=== PATIENT | female | born 1935 | race African-American/Black ===

== ENCOUNTER 2018-02-15 19:05 | Inpatient (IN) | payer MEDICARE, OTHER ==
[~2018-02-15] VITALS: Ht 154.9 cm; Wt 94.2 kg
[~2018-02-15 19:05] MED LIST: ADV250 IH; BRIM15DR8 OU; DOCU250C91 PO; ESCI5TAB PO; INSLAN SQ; LEVO25TA4 PO; LISI-622 PO; MEMA5 PO; NYSTPW TP; OMEP20CA10 PO; RISP0.252 PO; SIMV-260 PO; WARF2 PO
[2018-02-15] MEDS ORDERED: BISA10SU61 PR (20:12)
[2018-02-15] MEDS ORDERED: ACET-784 PO (20:12)
[2018-02-15] MEDS ORDERED: METF850T2 PO (20:12)
[2018-02-15] MEDS ORDERED: LORA0.5T83 PO (20:12)
[2018-02-15] MEDS ORDERED: LATA7.5D OU (20:12)
[2018-02-15] MEDS ORDERED: FOSF3PAC PO (20:12)
[2018-02-15] MEDS ORDERED: FURO20TA4 PO (20:12)
[2018-02-15] MEDS ORDERED: ACET1TAB12 PO (20:12)
[2018-02-15] MEDS ORDERED: ATOR10TA69 PO (20:12)
[2018-02-15] MEDS ORDERED: DEXT1CAP3 PO (20:12)
[2018-02-15] MEDS ORDERED: DONE5TAB26 PO (20:12)
[2018-02-15 21:12] LABS: BASOPHILS % (AUTO) 0.7 % (0.0-2.0); EOSINOPHILS % (AUTO) 1.3 % (1.0-6.0); HEMATOCRIT 39.1 % (36-46); LYMPHOCYTES % (AUTO) 20.8 % (22.0-44.0); MEAN CORPUSCULAR HEMOGLOBIN 32.2 pg (26.0-34.0); MEAN CORPUSCULAR HGB CONC 33.4 G/dL (31.0-37.0); MEAN CORPUSCULAR VOLUME 97 fL (80-100); MONOCYTES # (AUTO) 0.7 K/uL (0.1-1.0); MONOCYTES % (AUTO) 7.5 % (2.0-9.0); NEUTROPHILS # (AUTO) 6.7 K/uL (1.8-7.7); NEUTROPHILS % (AUTO) 69.7 % (40.0-70.0); PLATELET COUNT (AUTO) 261 K/uL (150-450); RED BLOOD CELL COUNT(AUTO) 4.05 MIL/uL (4.00-5.20); RED CELL DISTRIBUTION WIDTH 15.3 % (11.5-14.5)
[2018-02-15] MEDS ORDERED: HALOPERIDOL LACTATE 5 MG/ML VIAL IVP ONE (21:15)
[2018-02-15] MEDS ORDERED: MIDAZOLAM HCL 2 MG/2 ML VIAL IVP ONE (21:15)
[2018-02-15] MEDS ORDERED: LORazepam 2 MG/ML VIAL IVP ONE (21:45)
[2018-02-15 22:21] LABS: CALCIUM, TOTAL 9.8 mg/dL (8.8-10.5); CREATININE 1.13 mg/dL (0.60-1.30); POTASSIUM 4.5 mmol/L (3.5-5.1)
[2018-02-15 22:27] LABS: ALBUMIN 3.1 g/dL (3.4-5.0); BILIRUBIN,TOTAL 0.3 mg/dL (0.1-1.0)
[2018-02-15] MEDS ORDERED: 0.9% SODIUM CHLORIDE 10 ML SYRINGE IVP PRN (22:45)
[2018-02-15] MEDS ORDERED: ACETAMINOPHEN 325 MG TABLET PO PRN ×2 (22:45→23:30)
[2018-02-15 22:49] LABS: APPEARANCE,URINE CLEAR (CLEAR); BILIRUBIN,URINE NEGATIVE (NEGATIVE); GLUCOSE, URINE (UA) NEGATIVE (NEGATIVE); KETONES,URINE NEGATIVE (NEGATIVE); LEUKOCYTE ESTERASE ,URINE NEGATIVE (NEGATIVE); NITRATE,URINE NEGATIVE (NEGATIVE); OCCULT BLOOD,URINE NEGATIVE (NEGATIVE); PROTEIN,URINE NEGATIVE (NEGATIVE); UROBILINOGEN,URINE 0.2 mg/dL (<=1.0)
[2018-02-15 22:55] LABS: RBC,URINE 0-2 /HPF (0-2)
[2018-02-15 22:56] LABS: BACTERIA,URINE None Seen /HPF (None Seen); SQUAMOUS EPITHELIAL CELL,UR Few /LPF (None Seen)
[2018-02-15 22:57] LABS: HYALINE CASTS, URINE 0-2 /LPF (None Seen)
[2018-02-15] MEDS ORDERED: [UNRECOGNIZED DRUG - OTHER] CLINICAL ONE ×2 (23:00→23:15)
[2018-02-15] MEDS ORDERED: WATER IV ONE (23:15)
[2018-02-15] MEDS ORDERED: AMIKACIN SULFATE IV ONE (23:15)
[2018-02-15] MEDS ORDERED: DEXTROSE 5% IV ONE (23:15)
[2018-02-15] MEDS ORDERED: DEXTROSE 50%-WATER 25 GM/50 ML SYRINGE IVP PRN (23:15)
[2018-02-15] MEDS ORDERED: MAGNESIUM HYDROXIDE SUSPENSION 30 ML UDCUP PO PRN (23:30)
[2018-02-15] MEDS ORDERED: IPRATROPIUM BROMIDE 0.5 MG/2.5 ML NEB SOLUTION NEB PRN (23:30)
[2018-02-15] MEDS ORDERED: ONDANSETRON HCL 4 MG/2 ML VIAL IVP PRN (23:30)
[2018-02-15] MEDS ORDERED: ALBUTEROL SULFATE 2.5 MG/0.5 ML NEB SOLUTION NEB PRN (23:30)
[2018-02-15] MEDS ORDERED: BISACODYL 10 MG RECTAL RECTAL SUPPOSITORY PR PRN (23:30)
[2018-02-16] MEDS ORDERED: AMIKACIN SULFATE IV ONE ×2
[2018-02-16] MEDS ORDERED: DEXTROSE 5% IV ONE ×2
[2018-02-16] MEDS ORDERED: WATER IV ONE ×2
[2018-02-16 00:21] VITALS: BP 122/76
[2018-02-16] MEDS ORDERED: PNEUMOCOCCAL VACCINE POLYVALENT 0.5 ML VIAL [PPSV23] IM ONE (05:30)
[2018-02-16] MEDS: LEVOTHYROXINE SODIUM 25 MCG TABLET PO SCH (05:43)
[2018-02-16 08:07] VITALS: BP 145/70
[2018-02-16] MEDS: DEXTROMETHORPHAN HBR/QUINIDINE 20/10 MG CAPSULE PO SCH ×2 (08:38→19:56)
[2018-02-16] MEDS: ENOXAPARIN SODIUM 40 MG/0.4 ML PF SYRINGE SQ SCH (08:38)
[2018-02-16] MEDS: PANTOPRAZOLE SODIUM 40 MG DR TABLET PO SCH (08:38)
[2018-02-16] MEDS: MetFORMIN HCL 500 MG TABLET PO SCH ×2 (08:38→17:56)
[2018-02-16] MEDS: BRIMONIDINE TARTRATE 0.2% 5 ML OPHTHALMIC SOLUTION OU SCH ×2 (08:38→19:55)
[2018-02-16] MEDS: LATANOPROST 0.005% 2.5 ML OPHTHALMIC SOLUTION OU SCH (08:40)
[2018-02-16] MEDS: LORazepam 2 MG/ML VIAL IVP PRN (08:50)
[2018-02-16] MEDS ORDERED: HEPARIN SODIUM,PORCINE 5,000 UNITS/ML VIAL SQ SCH (09:00)
[2018-02-16] MEDS ORDERED: PANTOPRAZOLE SODIUM 40 MG/VIAL IVP SCH (09:00)
[2018-02-16] MEDS ORDERED: ATORVASTATIN CALCIUM 10 MG TABLET PO SCH (09:00)
[2018-02-16 10:19] LABS: BASOPHILS % (AUTO) 0.7 % (0.0-2.0); EOSINOPHILS % (AUTO) 1.4 % (1.0-6.0); HEMATOCRIT 37.1 % (36-46); HEMOGLOBIN 12.4 g/dL (12.0-16.0); LYMPHOCYTES # (AUTO) 1.8 K/uL (1.0-4.8); LYMPHOCYTES % (AUTO) 22.1 % (22.0-44.0); MEAN CORPUSCULAR HGB CONC 33.5 G/dL (31.0-37.0); MEAN CORPUSCULAR VOLUME 96 fL (80-100); MONOCYTES # (AUTO) 0.6 K/uL (0.1-1.0); MONOCYTES % (AUTO) 7.6 % (2.0-9.0); NEUTROPHILS # (AUTO) 5.6 K/uL (1.8-7.7); NEUTROPHILS % (AUTO) 68.2 % (40.0-70.0); PLATELET COUNT (AUTO) 251 K/uL (150-450); RED BLOOD CELL COUNT(AUTO) 3.88 MIL/uL (4.00-5.20); RED CELL DISTRIBUTION WIDTH 14.8 % (11.5-14.5)
[2018-02-16 10:31] LABS: HEMOGLOBIN A1C 5.5 % (4.5-6.2)
[2018-02-16 10:37] LABS: LACTIC ACID 1.4 mmol/L (0.4-2.0)
[2018-02-16 10:48] LABS: FOLATE SERUM 6.4 ng/mL (5.4-)
[2018-02-16 10:58] LABS: ANION GAP 12 mmol/L (8-16); CALCIUM, TOTAL 9.2 mg/dL (8.8-10.5); CARBON DIOXIDE 22 mmol/L (22-29); CHLORIDE 104 mmol/L (98-107); CHOL/HDL RATIO 3.6 (3.9-5.7); CHOLESTEROL 171 mg/dL (131-200); CREATINE KINASE, TOTAL 27 U/L (26-192); CREATININE 1.01 mg/dL (0.60-1.30); GLUCOSE,RANDOM 127 mg/dL (70-110); HDL CHOLESTEROL 47 mg/dL (40-60); LDL CHOL (CALC.) 108 mg/dL (0-130); SODIUM SERUM 138 mmol/L (136-145); THYROID STIMULATING HORMONE 3.18 uIU/mL (0.36-3.74); TRIGLYCERIDES 82 mg/dL (15-150); UREA NITROGEN, BLOOD 19 mg/dL (7-18)
[2018-02-16 11:00] LABS: GLOMERULAR FILTR. RATE CALC > 60 mL/min (>60)
[2018-02-16 11:20] VITALS: BP 124/78
[2018-02-16] MEDS ORDERED: DONE10TA8 PO (11:26)
[2018-02-16 13:54] LABS: GLUCOMETER DEV NAME(LOC) 6N 1E; GLUCOSE,POINT OF CARE 100 MG/DL (70-110)
[2018-02-16] MEDS ORDERED: MAGNESIUM SULFATE 4 GM/WATER 100 ML IV PRN (14:45)
[2018-02-16] MEDS ORDERED: MAGNESIUM SULFATE 2 GM/WATER 50 ML IV PRN (14:45)
[2018-02-16 15:35] VITALS: BP 113/50
[2018-02-16 17:39] LABS: GLUCOMETER DEV NAME(LOC) 6N 2D; GLUCOSE,POINT OF CARE 122 MG/DL (70-110)
[2018-02-16] MEDS: MAGNESIUM OXIDE 400 MG TABLET PO PRN ×2 (17:56→23:04)
[2018-02-16 19:24] VITALS: BP 109/56
[2018-02-16] MEDS: ATORVASTATIN CALCIUM 10 MG TABLET PO SCH (19:56)
[2018-02-16] MEDS: DONEPEZIL HCL 10 MG TABLET PO SCH (19:56)
[2018-02-16] MEDS ORDERED: DIVALPROEX SODIUM 500 MG DR TABLET PO SCH (21:00)
[2018-02-16 21:44] LABS: GLUCOMETER DEV NAME(LOC) 6N 1E; GLUCOSE,POINT OF CARE 106 MG/DL (70-110)
[2018-02-16 23:44] VITALS: BP 117/57
[2018-02-17] MEDS: MAGNESIUM OXIDE 400 MG TABLET PO PRN (03:57)
[2018-02-17 04:29] VITALS: BP 121/58
[2018-02-17] MEDS: LEVOTHYROXINE SODIUM 25 MCG TABLET PO SCH (05:39)
[2018-02-17 06:06] LABS: INR 1.1 (0.9-1.1); PROTHROMBIN TIME 11.1 SEC (9.4-11.6)
[2018-02-17 06:16] LABS: MAGNESIUM 1.8 mg/dL (1.80-2.40)
[2018-02-17 06:31] LABS: BASOPHILS % (AUTO) 0.7 % (0.0-2.0); EOSINOPHILS % (AUTO) 1.9 % (1.0-6.0); HEMATOCRIT 37.2 % (36-46); HEMOGLOBIN 12.4 g/dL (12.0-16.0); LYMPHOCYTES # (AUTO) 2.3 K/uL (1.0-4.8); LYMPHOCYTES % (AUTO) 28.1 % (22.0-44.0); MEAN CORPUSCULAR HEMOGLOBIN 32.1 pg (26.0-34.0); MEAN CORPUSCULAR HGB CONC 33.4 G/dL (31.0-37.0); MEAN CORPUSCULAR VOLUME 96 fL (80-100); MONOCYTES # (AUTO) 0.6 K/uL (0.1-1.0); NEUTROPHILS # (AUTO) 5.1 K/uL (1.8-7.7); NEUTROPHILS % (AUTO) 62.3 % (40.0-70.0); PLATELET COUNT (AUTO) 256 K/uL (150-450); RED BLOOD CELL COUNT(AUTO) 3.87 MIL/uL (4.00-5.20); RED CELL DISTRIBUTION WIDTH 15.1 % (11.5-14.5)
[2018-02-17 07:30] VITALS: BP 120/59
[2018-02-17] MEDS: AMIKACIN SULFATE IV SCH (08:51)
[2018-02-17] MEDS: DEXTROSE 5% IV SCH (08:51)
[2018-02-17] MEDS: WATER IV SCH (08:51)
[2018-02-17] MEDS: DEXTROMETHORPHAN HBR/QUINIDINE 20/10 MG CAPSULE PO SCH ×2 (08:58→19:50)
[2018-02-17] MEDS: PANTOPRAZOLE SODIUM 40 MG DR TABLET PO SCH (08:58)
[2018-02-17] MEDS: MetFORMIN HCL 500 MG TABLET PO SCH ×2 (08:58→18:14)
[2018-02-17] MEDS: BRIMONIDINE TARTRATE 0.2% 5 ML OPHTHALMIC SOLUTION OU SCH ×2 (08:58→19:50)
[2018-02-17] MEDS: ENOXAPARIN SODIUM 40 MG/0.4 ML PF SYRINGE SQ SCH (08:58)
[2018-02-17] MEDS: LATANOPROST 0.005% 2.5 ML OPHTHALMIC SOLUTION OU SCH (08:59)
[2018-02-17 09:14] LABS: CALCIUM, TOTAL 9.4 mg/dL (8.8-10.5); CREATININE 1.05 mg/dL (0.60-1.30); POTASSIUM 4.3 mmol/L (3.5-5.1)
[2018-02-17 09:14] LABS: GLUCOMETER DEV NAME(LOC) 6N 1E; GLUCOSE,POINT OF CARE 93 MG/DL (70-110)
[2018-02-17 11:24] VITALS: BP 106/60
[2018-02-17 12:24] LABS: GLUCOMETER DEV NAME(LOC) 6N 1E; GLUCOSE,POINT OF CARE 98 MG/DL (70-110)
[2018-02-17 16:18] VITALS: BP 106/58
[2018-02-17 17:54] LABS: GLUCOMETER DEV NAME(LOC) 6N 1E; GLUCOSE,POINT OF CARE 103 MG/DL (70-110)
[2018-02-17 19:40] VITALS: BP 114/54
[2018-02-17] MEDS: ATORVASTATIN CALCIUM 10 MG TABLET PO SCH (19:50)
[2018-02-17] MEDS: DONEPEZIL HCL 10 MG TABLET PO SCH (19:50)
[2018-02-17] MEDS: LORazepam 2 MG/ML VIAL IVP PRN (21:02)
[2018-02-17 21:03] LABS: GLUCOMETER DEV NAME(LOC) 6N 1E; GLUCOSE,POINT OF CARE 102 MG/DL (70-110)
[2018-02-17 23:15] VITALS: BP 106/52
[2018-02-18] MEDS: LORazepam 2 MG/ML VIAL IVP PRN ×2 (01:52→15:03)
[2018-02-18 04:25] VITALS: BP 110/55
[2018-02-18] MEDS: LEVOTHYROXINE SODIUM 25 MCG TABLET PO SCH (06:05)
[2018-02-18 06:23] LABS: GLUCOMETER DEV NAME(LOC) 6N 1E; GLUCOSE,POINT OF CARE 95 MG/DL (70-110)
[2018-02-18 07:52] VITALS: BP 92/51
[2018-02-18] MEDS ORDERED: SODIUM CHLORIDE 0.9% 250 ML IV ONE (08:04)
[2018-02-18] MEDS: BRIMONIDINE TARTRATE 0.2% 5 ML OPHTHALMIC SOLUTION OU SCH ×2 (08:07→20:18)
[2018-02-18] MEDS: MetFORMIN HCL 500 MG TABLET PO SCH ×2 (08:09→17:46)
[2018-02-18] MEDS: ENOXAPARIN SODIUM 40 MG/0.4 ML PF SYRINGE SQ SCH (08:09)
[2018-02-18] MEDS: PANTOPRAZOLE SODIUM 40 MG DR TABLET PO SCH (08:09)
[2018-02-18] MEDS: AMIKACIN SULFATE IV SCH (08:09)
[2018-02-18] MEDS: WATER IV SCH (08:09)
[2018-02-18] MEDS: DEXTROSE 5% IV SCH (08:09)
[2018-02-18] MEDS: DEXTROMETHORPHAN HBR/QUINIDINE 20/10 MG CAPSULE PO SCH ×2 (08:10→20:18)
[2018-02-18] MEDS: LATANOPROST 0.005% 2.5 ML OPHTHALMIC SOLUTION OU SCH (08:49)
[2018-02-18 09:13] LABS: BASOPHILS % (AUTO) 0.8 % (0.0-2.0); EOSINOPHILS % (AUTO) 2.6 % (1.0-6.0); HEMATOCRIT 36.6 % (36-46); HEMOGLOBIN 12.4 g/dL (12.0-16.0); LYMPHOCYTES # (AUTO) 2.3 K/uL (1.0-4.8); LYMPHOCYTES % (AUTO) 27.5 % (22.0-44.0); MEAN CORPUSCULAR HEMOGLOBIN 32.7 pg (26.0-34.0); MEAN CORPUSCULAR HGB CONC 33.9 G/dL (31.0-37.0); MEAN CORPUSCULAR VOLUME 97 fL (80-100); MONOCYTES # (AUTO) 0.6 K/uL (0.1-1.0); MONOCYTES % (AUTO) 6.8 % (2.0-9.0); NEUTROPHILS # (AUTO) 5.3 K/uL (1.8-7.7); NEUTROPHILS % (AUTO) 62.3 % (40.0-70.0); PLATELET COUNT (AUTO) 239 K/uL (150-450); RED BLOOD CELL COUNT(AUTO) 3.79 MIL/uL (4.00-5.20); RED CELL DISTRIBUTION WIDTH 14.8 % (11.5-14.5)
[2018-02-18 09:24] LABS: CREATININE 1.11 mg/dL (0.60-1.30); POTASSIUM 3.9 mmol/L (3.5-5.1)
[2018-02-18 11:27] VITALS: BP 116/54
[2018-02-18] MEDS: INSULIN LISPRO 100 UNITS/ML SQ PRN ×2 (12:26→17:20)
[2018-02-18] MEDS: LORazepam 0.5 MG TABLET PO PRN (14:26)
[2018-02-18 16:24] VITALS: BP 108/60
[2018-02-18 17:09] LABS: GLUCOMETER DEV NAME(LOC) 6N 2D; GLUCOSE,POINT OF CARE 107 MG/DL (70-110)
[2018-02-18 19:44] LABS: GLUCOMETER DEV NAME(LOC) 6N 1E; GLUCOSE,POINT OF CARE 118 MG/DL (70-110)
[2018-02-18 19:46] VITALS: BP 119/59
[2018-02-18] MEDS: ATORVASTATIN CALCIUM 10 MG TABLET PO SCH (20:18)
[2018-02-18] MEDS: DONEPEZIL HCL 10 MG TABLET PO SCH (20:18)
[2018-02-18 20:39] LABS: GLUCOMETER DEV NAME(LOC) 6N 2D; GLUCOSE,POINT OF CARE 99 MG/DL (70-110)
[2018-02-18 23:41] VITALS: BP 108/54
[2018-02-19 05:32] VITALS: BP 114/58
[2018-02-19] MEDS: LEVOTHYROXINE SODIUM 25 MCG TABLET PO SCH (05:46)
[2018-02-19 06:18] LABS: GLUCOMETER DEV NAME(LOC) 6N 1E; GLUCOSE,POINT OF CARE 95 MG/DL (70-110)
[2018-02-19 08:05] VITALS: BP 119/59
[2018-02-19 08:07] LABS: ANION GAP 11 mmol/L (8-16); CALCIUM, TOTAL 9.2 mg/dL (8.8-10.5); CARBON DIOXIDE 22 mmol/L (22-29); CHLORIDE 105 mmol/L (98-107); CREATININE 0.97 mg/dL (0.60-1.30); GLUCOSE,RANDOM 97 mg/dL (70-110); POTASSIUM 4.4 mmol/L (3.5-5.1); SODIUM SERUM 138 mmol/L (136-145); UREA NITROGEN, BLOOD 16 mg/dL (7-18)
[2018-02-19 08:09] LABS: GLOMERULAR FILTR. RATE CALC > 60 mL/min (>60)
[2018-02-19] MEDS: MetFORMIN HCL 500 MG TABLET PO SCH ×2 (08:16→17:40)
[2018-02-19] MEDS: PANTOPRAZOLE SODIUM 40 MG DR TABLET PO SCH (08:16)
[2018-02-19] MEDS: BRIMONIDINE TARTRATE 0.2% 5 ML OPHTHALMIC SOLUTION OU SCH ×2 (08:16→20:03)
[2018-02-19] MEDS: DEXTROMETHORPHAN HBR/QUINIDINE 20/10 MG CAPSULE PO SCH ×2 (08:16→20:03)
[2018-02-19] MEDS: AMIKACIN SULFATE IV SCH (08:17)
[2018-02-19] MEDS: WATER IV SCH (08:17)
[2018-02-19] MEDS: DEXTROSE 5% IV SCH (08:17)
[2018-02-19] MEDS: ENOXAPARIN SODIUM 40 MG/0.4 ML PF SYRINGE SQ SCH (08:18)
[2018-02-19] MEDS: LATANOPROST 0.005% 2.5 ML OPHTHALMIC SOLUTION OU SCH (08:18)
[2018-02-19] MEDS: INSULIN LISPRO 100 UNITS/ML SQ PRN ×2 (11:40→17:40)
[2018-02-19 11:46] VITALS: BP 116/58
[2018-02-19 14:29] LABS: GLUCOMETER DEV NAME(LOC) 6N 1E; GLUCOSE,POINT OF CARE 92 MG/DL (70-110)
[2018-02-19 18:48] LABS: GLUCOMETER DEV NAME(LOC) 6N 2D; GLUCOSE,POINT OF CARE 119 MG/DL (70-110)
[2018-02-19] MEDS: DONEPEZIL HCL 10 MG TABLET PO SCH (20:03)
[2018-02-19] MEDS: ATORVASTATIN CALCIUM 10 MG TABLET PO SCH (20:03)
[2018-02-19] MEDS: LORazepam 0.5 MG TABLET PO PRN (20:06)
[2018-02-19 20:33] LABS: GLUCOMETER DEV NAME(LOC) 6N 2D; GLUCOSE,POINT OF CARE 89 MG/DL (70-110)
[2018-02-19 20:35] VITALS: BP 113/42
[2018-02-20 00:26] VITALS: BP 116/55
[2018-02-20] MEDS: LORazepam 0.5 MG TABLET PO PRN (01:12)
[2018-02-20 05:20] VITALS: BP 113/53
[2018-02-20 05:49] LABS: EOSINOPHILS % (AUTO) 2.4 % (1.0-6.0); HEMATOCRIT 34.7 % (36-46); HEMOGLOBIN 11.7 g/dL (12.0-16.0); LYMPHOCYTES # (AUTO) 2.1 K/uL (1.0-4.8); LYMPHOCYTES % (AUTO) 28.2 % (22.0-44.0); MEAN CORPUSCULAR HEMOGLOBIN 32.4 pg (26.0-34.0); MEAN CORPUSCULAR HGB CONC 33.9 G/dL (31.0-37.0); MEAN CORPUSCULAR VOLUME 96 fL (80-100); MONOCYTES # (AUTO) 0.6 K/uL (0.1-1.0); MONOCYTES % (AUTO) 7.7 % (2.0-9.0); NEUTROPHILS # (AUTO) 4.6 K/uL (1.8-7.7); NEUTROPHILS % (AUTO) 60.7 % (40.0-70.0); PLATELET COUNT (AUTO) 240 K/uL (150-450); RED BLOOD CELL COUNT(AUTO) 3.62 MIL/uL (4.00-5.20); RED CELL DISTRIBUTION WIDTH 14.8 % (11.5-14.5)
[2018-02-20 06:14] LABS: ANION GAP 10 mmol/L (8-16); CALCIUM, TOTAL 8.9 mg/dL (8.8-10.5); CARBON DIOXIDE 22 mmol/L (22-29); CHLORIDE 101 mmol/L (98-107); CREATININE 1.03 mg/dL (0.60-1.30); GLUCOSE,RANDOM 90 mg/dL (70-110); SODIUM SERUM 133 mmol/L (136-145); UREA NITROGEN, BLOOD 16 mg/dL (7-18)
[2018-02-20 06:32] LABS: GLOMERULAR FILTR. RATE CALC > 60 mL/min (>60)
[2018-02-20] MEDS: LEVOTHYROXINE SODIUM 25 MCG TABLET PO SCH (06:40)
[2018-02-20 07:17] VITALS: BP 110/57
[2018-02-20] MEDS: ENOXAPARIN SODIUM 40 MG/0.4 ML PF SYRINGE SQ SCH (09:08)
[2018-02-20] MEDS: MetFORMIN HCL 500 MG TABLET PO SCH (09:08)
[2018-02-20] MEDS: PANTOPRAZOLE SODIUM 40 MG DR TABLET PO SCH (09:08)
[2018-02-20] MEDS: DEXTROMETHORPHAN HBR/QUINIDINE 20/10 MG CAPSULE PO SCH (09:11)
[2018-02-20] MEDS: BRIMONIDINE TARTRATE 0.2% 5 ML OPHTHALMIC SOLUTION OU SCH (09:12)
[2018-02-20] MEDS: LATANOPROST 0.005% 2.5 ML OPHTHALMIC SOLUTION OU SCH (09:14)
[2018-02-20] MEDS: LORazepam 2 MG/ML VIAL IVP PRN (10:37)
[2018-02-20 11:15] VITALS: BP 119/59
[2018-02-20 14:55] LABS: GLUCOMETER DEV NAME(LOC) 6N 1E; GLUCOSE,POINT OF CARE 85 MG/DL (70-110)
[2018-02-20 15:31] VITALS: BP 116/57
== END 2018-02-20 17:30 | DRG 871 ==
LOC: EMS 19:06 → UNDOADMIN 22:30 → 6N 22:30
PROVIDERS: ADMIT Internal Medicine Geriatric Medicine; ATTEND Internal Medicine Geriatric Medicine
DX: A41.9 Sepsis, unspecified organism (principal); G93.40 Encephalopathy, unspecified; N39.0 Urinary tract infection, site not specified; F03.91 Unspecified dementia, unspecified severity, with behavioral disturbance; E44.0 Moderate protein-calorie malnutrition; E87.2 Acidosis; E03.9 Hypothyroidism, unspecified; E11.9 Type 2 diabetes mellitus without complications; E78.5 Hyperlipidemia, unspecified; F48.2 Pseudobulbar affect; I11.0 Hypertensive heart disease with heart failure; I50.9 Heart failure, unspecified; K21.9 Gastro-esophageal reflux disease without esophagitis; R13.10 Dysphagia, unspecified; Z16.24 Resistance to multiple antibiotics; E66.01 Morbid (severe) obesity due to excess calories; H40.9 Unspecified glaucoma; H54.7 Unspecified visual loss; Z88.8 Allergy status to other drugs, medicaments and biological substances
CPT/HCPCS: 70450; 82306; 82607; 82746; 83036; 83605; 83735; 84145; 84439; 84443; 87040; 87081; 93005; 93306; 96365; 96375; 97110; 97167; 99285; J0278; J1630; J1650; J2060; J2250; J7050; J7060

== ENCOUNTER 2021-09-24 16:56 | Inpatient (IN) | payer MEDICARE, OTHER ==
[~2021-09-24] VITALS: Ht 175.3 cm; Wt 92.9 kg
[~2021-09-24 16:56] MED LIST changes: +ACET-2080 PO; +ACET-784 PO; -ADV250 IH; +ATOR10TA84 PO; +BISA10SU61 PR; +DEXT1CAP3 PO; -DOCU250C91 PO; +DONE10TA8 PO; -ESCI5TAB PO; +FE PR; +FOSF3PAC PO; -INSLAN SQ; +INSU100V SQ; +LATA7.5D OU; -LISI-622 PO; +LORA-999 PO; +LORA0.5T83 PO; -MEMA5 PO; +METF-1185 PO; +METF-911 PO; -NYSTPW TP; -OMEP20CA10 PO; +PANT-31 PO; -RISP0.252 PO; -SIMV-260 PO; -WARF2 PO
[2021-09-24] MEDS ORDERED: SODIUM CHLORIDE 0.9% 100 ML ONE (17:20)
[2021-09-24] MEDS ORDERED: IOHEXOL 350 MG/ML 100 ML VIAL ONE (17:21)
[2021-09-24 17:39] LABS: BASOPHILS % (AUTO) 0.7 % (0.0-2.0); EOSINOPHILS % (AUTO) 2.3 % (1.0-6.0); HEMATOCRIT 43.5 % (36-46); HEMOGLOBIN 14.3 g/dL (12.0-16.0); LYMPHOCYTES % (AUTO) 21.3 % (22.0-44.0); MEAN CORPUSCULAR HEMOGLOBIN 32.6 pg (26.0-34.0); MEAN CORPUSCULAR HGB CONC 32.8 G/dL (31.0-37.0); MEAN CORPUSCULAR VOLUME 99 fL (80-100); MONOCYTES # (AUTO) 0.3 K/uL (0.1-1.0); MONOCYTES % (AUTO) 6.2 % (2.0-9.0); NEUTROPHILS # (AUTO) 3.4 K/uL (1.8-7.7); NEUTROPHILS % (AUTO) 69.5 % (40.0-70.0); PLATELET COUNT (AUTO) 169 K/uL (150-450); RED BLOOD CELL COUNT(AUTO) 4.38 MIL/uL (4.00-5.20); RED CELL DISTRIBUTION WIDTH 16.3 % (11.5-14.5)
[2021-09-24 18:13] LABS: INR 1.1 (0.9-1.1); PROTHROMBIN TIME 12.1 SEC (9.4-11.6)
[2021-09-24 18:31] LABS: APPEARANCE,URINE TURBID (CLEAR); BILIRUBIN,URINE NEGATIVE (NEGATIVE); GLUCOSE, URINE (UA) NEGATIVE (NEGATIVE); KETONES,URINE NEGATIVE (NEGATIVE); LEUKOCYTE ESTERASE ,URINE LARGE (NEGATIVE); NITRATE,URINE NEGATIVE (NEGATIVE); OCCULT BLOOD,URINE MODERATE (NEGATIVE); PH,URINE 5.5 (5.0-8.0); PROTEIN,URINE 30-70 mg/dL (NEGATIVE); SPECIFIC GRAVITIY, URINE 1.022 (1.003-1.030); UROBILINOGEN,URINE <=1.0 mg/dL (<=1.0)
[2021-09-24] MEDS ORDERED: ALTEPLASE IV ONE ×2 (18:36)
[2021-09-24] MEDS ORDERED: WATER FOR INJECTION STERILE IV ONE ×2 (18:36)
[2021-09-24 18:37] LABS: BACTERIA,URINE Many /HPF (None Seen); RBC,URINE 26-50 /HPF (0-2); WBC,URINE 51-100 /HPF (0-5); YEAST,URINE Moderate /HPF (None Seen)
[2021-09-24 18:40] LABS: AMPHET/METH SCREEN,URINE NEGATIVE (NEGATIVE); BARBITURATE SCREEN, URINE NEGATIVE (NEGATIVE); BENZODIAZEPINES SCREEN,URINE NEGATIVE (NEGATIVE); CANNABINOID SCREEN,URINE NEGATIVE (NEGATIVE); COCAINE SCREEN,URINE NEGATIVE (NEGATIVE); METHADONE SCREEN, URINE NEGATIVE (NEGATIVE); OPIATE SCREEN,URINE NEGATIVE (NEGATIVE)
[2021-09-24 18:41] LABS: PHENCYCLIDINE SCREEN,URINE NEGATIVE (NEGATIVE)
[2021-09-24] MEDS ORDERED: ALTEPLASE PER STROKE PROTOCOL CLINICAL ONE (18:45)
[2021-09-24] MEDS ORDERED: CIPROFLOXACIN 400 MG/D5% WATER 200 ML IV ONE (18:45)
[2021-09-24 18:56] LABS: CALCIUM, TOTAL 9.4 mg/dL (8.8-10.5); CREATININE 1.25 mg/dL (0.60-1.30); POTASSIUM 4.8 mmol/L (3.5-5.1)
[2021-09-24 19:03] LABS: ALBUMIN 2.9 g/dL (3.4-5.0); BILIRUBIN,TOTAL 0.5 mg/dL (0.1-1.0); TOTAL PROTEIN, SERUM 6.8 g/dL (6.4-8.2)
[2021-09-24 21:02] LABS: COVID AG,FIA SOURCE NASAL SWAB
[2021-09-24] MEDS ORDERED: ONDANSETRON HCL 4 MG/2 ML VIAL IVP PRN (21:30)
[2021-09-24] MEDS ORDERED: INSULIN LISPRO 100 UNITS/ML SQ PRN (21:45)
[2021-09-24] MEDS ORDERED: DEXTROSE 50%-WATER 25 GM/50 ML SYRINGE IVP PRN (21:45)
[2021-09-24 22:07] VITALS: BP 128/55
[2021-09-24 23:07] VITALS: BP 112/54
[2021-09-25] VITALS (7 sets, daily range): BP systolic 94–138; BP diastolic 45–70
[2021-09-25] MEDS: CIPROFLOXACIN 400 MG/D5% WATER 200 ML IV SCH ×2 (07:50→20:46)
[2021-09-25] MEDS: ETHYL ALCOHOL 62% ANTISEPTIC NASAL INHALANT 0.6 ML AMPUL NASAL SCH ×2 (07:52→20:46)
[2021-09-25] MEDS: LATANOPROST 0.005% 2.5 ML OPHTHALMIC SOLUTION OU SCH (07:55)
[2021-09-25] MEDS ORDERED: SODIUM CHLORIDE 0.9% 250 ML IV ONE (07:57)
[2021-09-25 08:21] LABS: GLUCOSE,POINT OF CARE 122 MG/DL (70-110)
[2021-09-26] VITALS (8 sets, daily range): BP systolic 114–137; BP diastolic 51–68
[2021-09-26] MEDS: CIPROFLOXACIN 400 MG/D5% WATER 200 ML IV SCH ×2 (07:28→20:09)
[2021-09-26 08:35] LABS: GLUCOSE,POINT OF CARE 97 MG/DL (70-110)
[2021-09-26] MEDS: LATANOPROST 0.005% 2.5 ML OPHTHALMIC SOLUTION OU SCH (09:33)
[2021-09-26] MEDS: ETHYL ALCOHOL 62% ANTISEPTIC NASAL INHALANT 0.6 ML AMPUL NASAL SCH ×2 (09:33→20:10)
[2021-09-26] MEDS: HEPARIN SODIUM,PORCINE 5,000 UNITS/ML VIAL SQ SCH ×2 (09:33→16:10)
[2021-09-26] MEDS: DEXTROSE 5%-0.45% SODIUM CHL 1,000 ML IV SCH (11:31)
[2021-09-26 12:56] LABS: GLUCOSE,POINT OF CARE 80 MG/DL (70-110)
[2021-09-26] MEDS ORDERED: *CLINICAL-PERIPHERAL PARENTERAL NUTRITION DOSING CLINICAL ONE (18:00)
[2021-09-27] MEDS: HEPARIN SODIUM,PORCINE 5,000 UNITS/ML VIAL SQ SCH ×4 (00:32→23:19)
[2021-09-27 03:34] VITALS: BP 103/69
[2021-09-27] MEDS: DEXTROSE 5%-0.45% SODIUM CHL 1,000 ML IV SCH (06:08)
[2021-09-27 07:06] LABS: GLUCOMETER DEV NAME(LOC) 5S.2B; GLUCOSE,POINT OF CARE 143 MG/DL (70-110)
[2021-09-27 07:06] LABS: GLUCOMETER DEV NAME(LOC) 5S.2B; GLUCOSE,POINT OF CARE 93 MG/DL (70-110)
[2021-09-27 08:52] VITALS: BP 111/57
[2021-09-27] MEDS: CIPROFLOXACIN 400 MG/D5% WATER 200 ML IV SCH (09:45)
[2021-09-27] MEDS: LATANOPROST 0.005% 2.5 ML OPHTHALMIC SOLUTION OU SCH (09:46)
[2021-09-27] MEDS: ETHYL ALCOHOL 62% ANTISEPTIC NASAL INHALANT 0.6 ML AMPUL NASAL SCH ×2 (09:48→20:13)
[2021-09-27] MEDS: ASPIRIN 81 MG CHEWABLE TABLET PO SCH (10:06)
[2021-09-27 11:51] VITALS: BP 108/50
[2021-09-27 14:46] LABS: GLUCOMETER DEV NAME(LOC) 5S.1B; GLUCOSE,POINT OF CARE 104 MG/DL (70-110)
[2021-09-27 15:29] VITALS: BP 108/54
[2021-09-27 20:01] LABS: GLUCOMETER DEV NAME(LOC) 5N.1C; GLUCOSE,POINT OF CARE 124 MG/DL (70-110)
[2021-09-27 20:14] VITALS: BP 123/75
[2021-09-27 23:15] VITALS: BP 118/58
[2021-09-27] MEDS ORDERED: *CLINICAL-GENTAMICIN DOSING CLINICAL ONE (23:15)
[2021-09-28] MEDS ORDERED: GENTAMICIN 120 MG/NACL ISO-OSM 100 ML IV ONE
[2021-09-28] MEDS ORDERED: SODIUM CHLORIDE 0.9% 250 ML IV ONE (01:01)
[2021-09-28] MEDS: DEXTROSE 5%-0.45% SODIUM CHL 1,000 ML IV SCH ×2 (02:14→23:40)
[2021-09-28 04:29] VITALS: BP 125/67
[2021-09-28 06:01] LABS: GLUCOMETER DEV NAME(LOC) 5S.1B; GLUCOSE,POINT OF CARE 118 MG/DL (70-110)
[2021-09-28 07:40] VITALS: BP 103/58
[2021-09-28 08:05] LABS: CALCIUM, TOTAL 8.9 mg/dL (8.8-10.5); CREATININE 1.23 mg/dL (0.60-1.30); POTASSIUM 4.1 mmol/L (3.5-5.1)
[2021-09-28] MEDS ORDERED: GENTAMICIN 60 MG/NACL ISO-OSM 50 ML IV ONE (08:15)
[2021-09-28 08:36] LABS: GLUCOMETER DEV NAME(LOC) 5S.1B; GLUCOSE,POINT OF CARE 109 MG/DL (70-110)
[2021-09-28] MEDS: HEPARIN SODIUM,PORCINE 5,000 UNITS/ML VIAL SQ SCH ×3 (08:50→23:40)
[2021-09-28] MEDS: ETHYL ALCOHOL 62% ANTISEPTIC NASAL INHALANT 0.6 ML AMPUL NASAL SCH ×2 (08:52→20:52)
[2021-09-28] MEDS: LATANOPROST 0.005% 2.5 ML OPHTHALMIC SOLUTION OU SCH (08:52)
[2021-09-28] MEDS: ASPIRIN 81 MG CHEWABLE TABLET PO SCH (08:52)
[2021-09-28] MEDS: MULTIVITAMINS, THERAPEUTIC 15 ML UDCUP PO SCH (08:53)
[2021-09-28 12:10] VITALS: BP 113/51
[2021-09-28] MEDS ORDERED: CIPROFLOXACIN 400 MG/D5% WATER 200 ML IV SCH (14:00)
[2021-09-28] MEDS ORDERED: BISACODYL 10 MG RECTAL RECTAL SUPPOSITORY PR PRN (14:15)
[2021-09-28 16:35] VITALS: BP 116/74
[2021-09-28 17:31] LABS: GLUCOMETER DEV NAME(LOC) 5S.1B; GLUCOSE,POINT OF CARE 111 MG/DL (70-110)
[2021-09-28 19:25] VITALS: BP 128/49
[2021-09-28 19:41] LABS: GLUCOMETER DEV NAME(LOC) 5S.1B; GLUCOSE,POINT OF CARE 119 MG/DL (70-110)
[2021-09-28] MEDS: ATORVASTATIN CALCIUM 20 MG TABLET PO SCH (20:51)
[2021-09-28 21:11] LABS: GLUCOMETER DEV NAME(LOC) 5S.1B; GLUCOSE,POINT OF CARE 127 MG/DL (70-110)
[2021-09-28 23:40] VITALS: BP 120/51
[2021-09-29 03:40] VITALS: BP 110/65
[2021-09-29 06:29] LABS: BASOPHILS % (AUTO) 1.1 % (0.0-2.0); EOSINOPHILS % (AUTO) 3.1 % (1.0-6.0); HEMOGLOBIN 14.6 g/dL (12.0-16.0); LYMPHOCYTES # (AUTO) 0.7 K/uL (1.0-4.8); LYMPHOCYTES % (AUTO) 17.7 % (22.0-44.0); MEAN CORPUSCULAR HEMOGLOBIN 32.8 pg (26.0-34.0); MEAN CORPUSCULAR HGB CONC 33.1 G/dL (31.0-37.0); MEAN CORPUSCULAR VOLUME 99 fL (80-100); MONOCYTES # (AUTO) 0.4 K/uL (0.1-1.0); MONOCYTES % (AUTO) 8.5 % (2.0-9.0); NEUTROPHILS # (AUTO) 2.9 K/uL (1.8-7.7); NEUTROPHILS % (AUTO) 69.6 % (40.0-70.0); PLATELET COUNT (AUTO) 156 K/uL (150-450); RED BLOOD CELL COUNT(AUTO) 4.43 MIL/uL (4.00-5.20); RED CELL DISTRIBUTION WIDTH 17.2 % (11.5-14.5)
[2021-09-29 06:56] LABS: GLUCOMETER DEV NAME(LOC) 5S.1B; GLUCOSE,POINT OF CARE 90 MG/DL (70-110)
[2021-09-29 07:10] LABS: CREATININE 1.13 mg/dL (0.60-1.30); POTASSIUM 4.5 mmol/L (3.5-5.1)
[2021-09-29 07:28] VITALS: BP 118/65
[2021-09-29] MEDS: GENTAMICIN 100 MG/NACL ISO-OSM 50 ML IV SCH (09:23)
[2021-09-29] MEDS: LATANOPROST 0.005% 2.5 ML OPHTHALMIC SOLUTION OU SCH (09:23)
[2021-09-29] MEDS: ASPIRIN 81 MG CHEWABLE TABLET PO SCH (09:24)
[2021-09-29] MEDS: HEPARIN SODIUM,PORCINE 5,000 UNITS/ML VIAL SQ SCH ×2 (09:24→15:59)
[2021-09-29] MEDS: MULTIVITAMINS, THERAPEUTIC 15 ML UDCUP PO SCH (09:24)
[2021-09-29] MEDS: ETHYL ALCOHOL 62% ANTISEPTIC NASAL INHALANT 0.6 ML AMPUL NASAL SCH ×2 (09:25→20:26)
[2021-09-29 13:21] LABS: GLUCOMETER DEV NAME(LOC) 5N.1C; GLUCOSE,POINT OF CARE 112 MG/DL (70-110)
[2021-09-29 16:13] VITALS: BP 105/62
[2021-09-29 18:36] LABS: GLUCOMETER DEV NAME(LOC) 5N.1C; GLUCOSE,POINT OF CARE 101 MG/DL (70-110)
[2021-09-29 20:22] VITALS: BP 125/57
[2021-09-29] MEDS: ATORVASTATIN CALCIUM 20 MG TABLET PO SCH (20:26)
[2021-09-29] MEDS: DEXTROSE 5%-0.45% SODIUM CHL 1,000 ML IV SCH (20:26)
[2021-09-29 20:51] LABS: GLUCOMETER DEV NAME(LOC) 5N.1C; GLUCOSE,POINT OF CARE 109 MG/DL (70-110)
[2021-09-30] MEDS: HEPARIN SODIUM,PORCINE 5,000 UNITS/ML VIAL SQ SCH ×3 (00:22→16:02)
[2021-09-30 00:29] VITALS: BP 115/63
[2021-09-30 00:46] LABS: GLUCOMETER DEV NAME(LOC) 5N.1C; GLUCOSE,POINT OF CARE 146 MG/DL (70-110)
[2021-09-30 04:28] VITALS: BP 98/49
[2021-09-30 06:17] LABS: GLUCOMETER DEV NAME(LOC) 5N.1C; GLUCOSE,POINT OF CARE 122 MG/DL (70-110)
[2021-09-30 08:18] VITALS: BP 112/51
[2021-09-30] MEDS ORDERED: MULTIVITAMINS WITH MINERALS, THERAPEUTIC TABLET PO SCH (09:00)
[2021-09-30] MEDS: ASPIRIN 81 MG CHEWABLE TABLET PO SCH (09:05)
[2021-09-30] MEDS: GENTAMICIN 100 MG/NACL ISO-OSM 50 ML IV SCH (09:09)
[2021-09-30] MEDS: LATANOPROST 0.005% 2.5 ML OPHTHALMIC SOLUTION OU SCH (09:09)
[2021-09-30] MEDS: ETHYL ALCOHOL 62% ANTISEPTIC NASAL INHALANT 0.6 ML AMPUL NASAL SCH (09:10)
[2021-09-30] MEDS: MULTIVITAMINS, THERAPEUTIC 15 ML UDCUP PO SCH (09:11)
[2021-09-30 09:45] LABS: CALCIUM, TOTAL 9.1 mg/dL (8.8-10.5); CREATININE 1.05 mg/dL (0.60-1.30); POTASSIUM 4.3 mmol/L (3.5-5.1)
[2021-09-30 13:01] VITALS: BP 106/57
[2021-09-30 14:06] LABS: GLUCOMETER DEV NAME(LOC) 5S.1B; GLUCOSE,POINT OF CARE 124 MG/DL (70-110)
[2021-09-30] MEDS: DEXTROSE 5%-0.45% SODIUM CHL 1,000 ML IV SCH (16:01)
[2021-09-30 18:11] LABS: GLUCOMETER DEV NAME(LOC) 5N.1C; GLUCOSE,POINT OF CARE 133 MG/DL (70-110)
== END 2021-09-30 20:40 | DRG 61 ==
LOC: EMS 17:03 → ICU 21:26 → 5S 09-26 18:00
PROVIDERS: ADMIT Internal Medicine; ATTEND Internal Medicine
DX: I63.9 Cerebral infarction, unspecified (principal); G93.41 Metabolic encephalopathy; I50.33 Acute on chronic diastolic (congestive) heart failure; N30.00 Acute cystitis without hematuria; I69.351 Hemiplegia and hemiparesis following cerebral infarction affecting right dominant side; E03.9 Hypothyroidism, unspecified; E11.9 Type 2 diabetes mellitus without complications; E78.5 Hyperlipidemia, unspecified; F03.90 Unspecified dementia, unspecified severity, without behavioral disturbance, psychotic disturbance, mood disturbance, and anxiety; E66.01 Morbid (severe) obesity due to excess calories; Z20.822 Contact with and (suspected) exposure to COVID-19; R13.10 Dysphagia, unspecified; K21.9 Gastro-esophageal reflux disease without esophagitis; I11.0 Hypertensive heart disease with heart failure; Z74.01 Bed confinement status; Z79.899 Other long term (current) drug therapy; Z68.30 Body mass index [BMI] 30.0-30.9, adult; Z88.0 Allergy status to penicillin; Z88.8 Allergy status to other drugs, medicaments and biological substances; Z98.51 Tubal ligation status
CPT/HCPCS: 51702; 70496; 70498; 70551; 71045; 74230; 80048; 80053; 81001; 82962; 83880; 84484; 85025; 85610; 85730; 86850; 86900; 86901; 87081; 87086; 92526; 92610; 92611; 93005; 93306; 93880; 93970; 97110; 97162; 97167; 97530; 97535; 99291; G0378; J0744; J1580; J1644; J2997; J7050; Q9967; 36415-L1; 36415-TC; 70450; 70450-TC